=== PATIENT | female | born 2000 | race Asian ===

== ENCOUNTER → 2023-01-07 08:11 | Outpatient (CLI) | payer OTHER, MEDICAID, SELFPAY ==
--- NOTE | 2023-01-07 | DI.ECHO.S_ITS ---
[facility] +---------+ : : [address] [place] [address] : : : : [id number] : : : : Phone: [phone]---------+ Echocardiogram Report + + :Name: LILLIANA CASTRO Study Date: 01/07/2023 Height: 63 in : :[facility] ReadingLocation: Weight: 137 lb : : Gender: Female BSA: 1.6 m2 : :: 2000 Age: 22 yrs BP: 144/98 mmHg: :Reason For Study: Cardiac Murmur : :Ordering Physician: KULWANT, : :PATRICIA Performed By: Elizabet Cortez : :Referring: PATRICIA BLUM : + + Interpretation Summary The ejection fraction is estimated to be 50-55%. Diastolic parameters suggest probable normal left ventricular diastolic function and normal filling pressures. The right ventricle is normal in size and function. No significant valvular abnormalities. Pulmonary artery pressures cannot be estimated because of the lack of a measurable TR jet velocity but the IVC suggests a CVP of around 3 mmHg. Procedure: A two-dimensional transthoracic echocardiogram with color flow and Doppler was performed. The study quality was technically adequate. There is no prior echocardiogram noted for this patient. The patient was in normal sinus rhythm during the exam. Left Ventricle: The left ventricle is normal in size. The ejection fraction is estimated to be 50-55%. Diastolic parameters suggest probable normal left ventricular diastolic function and normal filling pressures. Right Ventricle: The right ventricle is normal in size and function. Atria: The left atrial size is normal. Right atrial size is normal. There is no Doppler evidence for an interatrial shunt. Mitral Valve: The mitral valve is normal. There is no mitral valve stenosis. There is trace mitral regurgitation. Aortic Valve: The aortic valve is trileaflet. The aortic valve opens well. There is no aortic valve stenosis. No aortic regurgitation is present. Tricuspid Valve: The tricuspid valve is normal. There is no tricuspid stenosis. There is trace tricuspid regurgitation. Pulmonary artery pressures cannot be estimated because of the lack of a measurable TR jet velocity but the IVC suggests a CVP of around 3 mmHg. Pulmonic Valve: The pulmonic valve leaflets are thin and pliable; valve motion is normal. There is no pulmonic valvular stenosis. There is trace pulmonic regurgitation. Great Vessels: The aortic root is normal size. The ascending aorta is normal in size. The pulmonary artery is normal size. The IVC is of normal diameter and collapses greater than 50% with a sniff. This suggests a low right atrial pressure of 3 mm Hg. Pericardium/ Pleura There is no pericardial effusion. There is no pleural effusion. MMode/2D Measurements & Calculations LVIDd: 4.5 cm LVOT diam: 1.9 cm LVIDs: 2.8 cm Ao root diam: 2.6 cm FS: 37.2 % asc Aorta Diam: 2.7 cm EPSS: 0.71 cm IVSd: 0.74 cm LVPWd: 0.74 cm LV perez. diameter/BSA (cm/m^2): 2.7 LV sys. diameter/BSA (cm/m^2): 1.7 LA A2 area: 11.8 cm2 RA long axis: 4.5 cm LA A4 area: 14.5 cm2 RA area: 14.0 cm2 LA length (vol): 4.8 cm RA vol: 37.5 ml LA vol: 30.2 ml RA : 22.8 ml/m2 LA vol index: 18.3 ml/m2 RVD1 (basal): 3.8 cm TAPSE: 2.2 cm Doppler Measurements & Calculations Ao V2 max: 144.9 cm/sec LVOT Max Capo: 81.8 cm/sec Ao V2 mean: 103.1 cm/sec LV V1 max P.7 mmHg Ao max P.4 mmHg LV V1 VTI: 17.8 cm Ao mean P.7 mmHg SAMANTHA(I,D): 1.7 cm2 Ao V2 VTI: 31.2 cm SAMANTHA(V,D): 1.6 cm2 sev ratio: 0.57 SAMANTHA indexed to BSA (cm^2/m^2): 1.0 MV E max capo: 88.1 cm/sec PA V2 max: 90.8 cm/sec MV A max capo: 68.2 cm/sec PA V2 mean: 66.5 cm/sec MV E/A: 1.3 PA mean P.9 mmHg Med Peak E' Capo: 8.4 cm/sec PA pr(Accel): 14.8 mmHg E/E' med: 10.5 Lat Peak E' Capo: 13.4 cm/sec E/E' lat: 6.6 E/e' average: 8.5 MV dec time: 0.22 sec SVLVOT): 51.8 ml Reading Physician:05:24 PM
== END ==
PROVIDERS: Referring Provider Naturopath; Visit Provider Naturopath
DX: R01.1 Cardiac murmur, unspecified (principal)
CPT/HCPCS: 93306

== ENCOUNTER → 2025-03-06 15:01 | Outpatient (CLI) | payer OTHER, MEDICAID, SELFPAY ==
--- NOTE | 2025-03-06 15:03 | DI.US.S_ITS ---
PROCEDURE: US PELVIC COMPLETE INDICATIONS: amenorrhea TECHNIQUE: Real-time scanning was performed of the pelvic organs, with image documentation. Additional endovaginal scanning was necessary due to incomplete visualization of the adnexal and endometrial structures by transabdominal scanning. COMPARISON: None. FINDINGS: Uterus: Uterus is anteverted and normal in size at 7.4 x 3.7 x 4.7 cm. The myometrium is homogeneous. The endometrium measures 9.5 mm combined thickness. Ovaries: The right ovary measures 2.5 x 4.1 x 2.8 cm, with a calculated ovarian volume of 15.2 cc. The left ovary measures 2.8 x 1.4 x 3.7 cm, with a calculated ovarian volume of 7.6 cc. The ovaries have a normal sonographic appearance. Multiple peripheral follicles are seen bilaterally. No adnexal masses are seen. Other: No pathologic free abdominal or pelvic fluid. IMPRESSION: Multiple peripheral follicles are seen within the bilateral ovaries, recommend clinical correlation for polycystic ovarian syndrome. We strive to produce accurate, complete, and clear reports of imaging services. To assist us in improving patient care, this report was composed using standard report templates and voice recognition software. Therefore, it may contain abnormal punctuation, insertions and/or omissions. Occasional wrong-word or sound-alike substitutions may occur. Though we review the report and make efforts to correct it, we do recommend that the report be read carefully in proper context to recognize any text inaccuracies. Dictated by: Behzad Saunders M.D. on 03/07/2025 at 8:40 Approved by: Behzad Saunders M.D. on 03/07/2025 at 9:05
== END ==
LOC: US 15:03
PROVIDERS: Referring Provider Naturopath; Visit Provider Naturopath
DX: L83 Acanthosis nigricans (principal); N91.1 Secondary amenorrhea
CPT/HCPCS: 76830; 76856